=== PATIENT | female | born 1945 | race Caucasian/White ===

== ENCOUNTER → 2017-10-22 | Outpatient (CLI) | payer MEDICARE ==
[~2017-10-22] MED LIST: ALBU2.5V36 INH; AMIL5TAB12 PO; AMLO2.5T75 PO; ASPI-573 PO; ATE50 PO; CEFT1VIA57 IM; CHOL200025 PO; EZET10TA41 PO; FEN145 PO; FLUT16SP19; IOPAMIDOL 76% 75 ML INFUS BTL 75 ML ONE; LACT1CAP6 PO; LIS10 PO; METO50TA19 PO; OXYB10TA PO; PENT100C10 PO; PHENA200 PO; RED600CA15 PO; VITA100014 PO; [UNRECOGNIZED DRUG - CODE] PO
--- NOTE | 2017-10-22 11:47 | RADIOLOGY IMAGING REPORT ---
FACILITY: [facility] [place] PATIENT NAME: Yanna Bryant : 1945 MR: [id number] V: [id number] EXAM DATE: ORDERING PHYSICIAN: ARVIND KISER TECHNOLOGIST: Location: [facility] Patient: Yanna Bryant : 1945 Visit/Account:[id number] Date of Sevice: 10/22/2017 ABDOMEN/PELVIS W/WO CONTRAST History: Pelvic and lower abdominal pain and 72-year-old female. Technique: CT images were obtained through the abdomen and pelvis without the injection of intravenou s contrast. Coronal and sagittal reformations were then created. One of the following dose optimization techniques was utilized in the performance of this exam: Autom ated exposure control; adjustment of the mA and/or kV according to the patient's size; or use of an i terative reconstruction technique. Specific details can be referenced in the facility's radiology C T exam operational policy. Comparison study:None Findings: Lung bases: Negative Hepatobiliary: No liver mass is seen, but the noncontrast study limits evaluation of the liver. The g allbladder so far as visualized is unremarkable and there is no gallstone disease. Spleen: Negative. Adrenals: Negative Pancreas: Negative. Kidneys/genitourinary/retroperitoneum: There is minimal perinephric stranding minimal findings of a m ass, hydronephrosis or a ureteral calculus. No bladder calculi are seen. There is no retroperitonea l lymphadenopathy. Bowel/peritoneum/mesentery: There is diverticulosis of the sigmoid colon but there are no findings of diverticulitis. A normal appendix is not seen. Pelvic/genital urinary: The bladder is unremarkable. Neither the uterus or ovaries are seen. There are multiple phleboliths in the pelvis. Vessels: There is dense vascular calcification of the aorta.. Lymph node: No findings of a kathie mass.. Body wall/bones: There is no finding of an inguinal or periumbilical hernia. 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 IMPRESSION: 1. No findings of pathology to explain this patient's abdominal pain. 2. No findings of hydronephrosis or nephrolithiasis. 3. Diverticulosis without diverticulitis. 4. Prominent vascular calcification of the infrarenal aorta. 5. Postoperative gynecologic changes in the pelvis not otherwise specified. 6. 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 Report Dictated By: Charly Rai MD at 10/22/2017 11:38 AM Report E-Signed By: Charly Rai MD at 10/22/2017 11:43 AM WSN:[email or web address]
== END ==
LOC: CT 01:59
PROVIDERS: ATTEND Urology
DX: N39.0 Urinary tract infection, site not specified (principal); K57.90 Diverticulosis of intestine, part unspecified, without perforation or abscess without bleeding; I70.0 Atherosclerosis of aorta
CPT/HCPCS: 74178; 82565; Q9967; 36415

== ENCOUNTER → 2017-10-22 | Outpatient (REF) | payer MEDICARE ==
[~2017-10-22] MED LIST changes: -IOPAMIDOL 76% 75 ML INFUS BTL 75 ML ONE
== END ==
LOC: ZZSENDIN 10:30
PROVIDERS: ATTEND Urology
DX: N39.0 Urinary tract infection, site not specified (principal); R31.1 Benign essential microscopic hematuria
CPT/HCPCS: 88108

== ENCOUNTER → 2018-10-27 | Outpatient (CLI) | payer MEDICARE ==
[~2018-10-27] MED LIST changes: -CEFT1VIA57 IM; +CEFT1VIA63 IM
--- NOTE | 2018-10-29 13:48 | RADIOLOGY IMAGING REPORT ---
FACILITY: [facility] - [place] PATIENT NAME: LALIT GUSMAN : [id number] MR: [id number] V: [id number] EXAM DATE: [id number] ORDERING PHYSICIAN: MICAELA SANCHEZ TECHNOLOGIST: Debo Sheriff PROCEDURE: BILATERAL DIGITAL SCREENING MAMMOGRAM WITH CAD ASSISTED INTERPRETATION & 3D TOMOSYNTHESIS. REASON FOR STUDY: Screening. FAMILY HISTORY OF BREAST CANCER: BREAST PROCEDURES/TREATMENTS: COMPARISON: 10/05/2015 & 02/16/2014. VIEWS OBTAINED: 2D & 3D full field CC & MLO projections. BREAST DENSITY: Demonstrates scattered fibroglandular tissue elements. MAMMOGRAM FINDINGS: Scattered calcifications which are benign are seen in both breasts, stable. There is no suspicious mass, calcification, or architectural distortion. IMPRESSION: BIRADS 2: Benign finding. DIAGNOSTIC CATEGORY 2--BENIGN FINDING. RECOMMENDATIONS: ROUTINE MAMMOGRAM AND CLINICAL EVALUATION IN 1 YR. Dictated by: Hira Glover M.D. on 10/29/2018 at 10:35 Transcribed by: CLEMENTINA on 10/29/2018 at 10:52 Approved by: Hira Glover M.D. on 10/29/2018 at 13:44 [facility]
== END ==
LOC: MAMO 01:18
PROVIDERS: ATTEND Nurse Practitioner Family
DX: Z12.31 Encounter for screening mammogram for malignant neoplasm of breast (principal)
CPT/HCPCS: 77063; 77067

== ENCOUNTER 2018-11-27 11:27 | Emergency (ER) | payer MEDICARE ==
--- NOTE | 2018-11-27 11:33 | ER Report ---
History and Physical Time Seen By MD: 11:28 HPI/ROS Left breast redness that started 2-3 days ago. No fever chills. No nipple drainage. Normal mammogram one month ago. Placed on Bactrim by her PCM in [place]. Symptoms worsened after 2 doses of antibiotics. No other complaints. Remainder of the 14 system rev: Yes Allergies: Coded Allergies: cephalexin (Verified Allergy, Severe, RASH, 11/27/18) indomethacin (Verified Allergy, Mild, RASH, 11/27/18) Penicillins (Unverified Allergy, Unknown, RASH, 11/27/18) atorvastatin (Unverified Allergy, Unknown, MUSCLE LOSS, 11/27/18) rosuvastatin (Unverified Allergy, Unknown, MUSCLE LOSS, 11/27/18) Uncoded Allergies: TAPE (Allergy, Intermediate, BLISTERS, 08/28/06) KNOWN RX FROM ADHESIVE AND PAPER TAPES PENCILLIN (Allergy, Mild, RASH, 08/28/06) Home Meds Active Scripts Doxycycline Hyclate (DOXYCYCLINE HYCLATE) 100 Mg Tablet.dr, 100 MG PO BID for 10 Days, #20 Prov:DONNIE RAZO MD 11/27/18 Fluticasone Prop 50 Mcg Ns (FLONASE 50 MCG NS) 16 Gm [place].susp, 2 SPRAYS NA QDAY for 30 Days, #1 BOT 6 Refills Prov:SHAUNNA WILLIS JR, MD 08/30/17 Reported Medications Albuterol Sulfate 0.083% (ALBUTEROL SULFATE 0.083%) 2.5 Mg/3 Ml Vial.neb, 1 EA INH PRN, INH 08/16/17 Vitamin E (Dl,Tocopheryl Acet) (VITAMIN E) 1,000 Unit Capsule, 1 CAP PO QDAY, CAPSULE 08/16/17 Cholecalciferol (Vitamin D3) (VITAMIN D3) 2,000 Unit Capsule, 1 CAP PO QDAY, CAPSULE 08/16/17 Red Yeast Rice (RED YEAST RICE) 600 Mg Capsule, 2 CAP PO QDAY, CAPSULE 08/16/17 Lactobacillus Combination No.4 (PROBIOTIC) 1 Each Capsule, 1 CAP PO QDAY, CAPSULE 08/16/17 Amlodipine Besylate (NORVASC) 2.5 Mg Tablet, 1 TAB PO QDAY, TAB 08/16/17 Ezetimibe (ZETIA) 10 Mg Tablet, 1 TAB PO QDAY, TAB 08/16/17 Metoprolol Succinate (METOPROLOL SUCCINATE) 50 Mg Tab.er.24h, 1 TAB PO QDAY, TAB 08/16/17 Aspirin (Low-Dose Aspirin) 81 Mg Tablet, 1 TAB PO DAILY, #1 08/28/06 Amiloride Hcl (Midamor) 5 Mg Tablet, 1 TAB PO DAILY, #1 08/28/06 Smoking Status: Never Smoker Constitutional Vital Sign - Last 24 Hours 11/27/18 11/27/18 11/27/18 11/27/18 11:27 11:31 11:57 12:13 Temp 98.1 Pulse 62 66 52 Resp 20 B/P (MAP) 187/82 159/68 (98) Pulse Ox 88 91 89 O2 Delivery Room Air 11/27/18 11/27/18 11/27/18 11/27/18 12:27 12:30 13:18 13:45 Pulse 47 B/P (MAP) 157/68 (97) 147/77 (100) Pulse Ox 89 O2 Flow Rate 2.0 Physical Exam General Appearance: The patient is alert, has no immediate need for airway protection and no current signs of toxicity. Eyes: Pupils equal and round no injection. Respiratory: Chest is non tender, lungs are clear to auscultation. Cardiac: regular rate and rhythm Skin: Cellulitis of left breast at the nipple region. Also with underlying mass c/w likely abscess. No nipple drainage. DIFFERENTIAL DIAGNOSIS: After history and physical exam differential diagnosis was considered for breast cancer/mass, cellulitis, abscess, MRSA Medical Decision Making Data Points Result Diagram: 11/27/18 1132 11/27/18 1132 Laboratory Hematology Test 11/27/18 11:32 White Blood Count 11.6 k/uL (4.5-11.0) H Red Blood Count 5.55 M/uL (4.17-5.56) Hemoglobin 16.4 g/dL (12.0-16.0) H Hematocrit 34.5 % (34.0-47.0) Mean Corpuscular Volume 87.7 fL (80.0-96.0) Mean Corpuscular Hemoglobin 29.2 pg (26.0-33.0) Mean Corpuscular Hemoglobin Concent 32.3 g/dL (32.0-36.0) Red Cell Distribution Width 14.4 % (11.5-14.5) Platelet Count 213 K/uL (150-450) Mean Platelet Volume 8.1 fL (7.2-11.1) Neutrophils (%) (Auto) 79.1 % (39.4-72.5) H Lymphocytes (%) (Auto) 12.9 % (17.6-49.6) L Monocytes (%) (Auto) 6.6 % (4.1-12.4) Eosinophils (%) (Auto) 0.9 % (0.4-6.7) Basophils (%) (Auto) 0.5 % (0.3-1.4) Nucleated RBC Relative Count (auto) 0.1 /100WBC Neutrophils # (Auto) 9.1 K/uL (2.0-7.4) H Lymphocytes # (Auto) 1.5 K/uL (1.3-3.6) Monocytes # (Auto) 0.8 K/uL (0.3-1.0) Eosinophils # (Auto) 0.1 K/uL (0.0-0.5) Basophils # (Auto) 0.1 K/uL (0.0-0.1) Nucleated RBC Absolute Count (auto) 0.02 K/uL Chemistry Test 11/27/18 11:32 Sodium Level 138 mmol/L (137-145) Potassium Level 4.0 mmol/L (3.5-5.0) Chloride Level 102 mmol/L (98-107) Carbon Dioxide Level 28 mmol/L (22-31) Blood Urea Nitrogen 9 mg/dl (7-18) Creatinine 0.70 mg/dl (0.52-1.04) Glomerular Filtration Rate Calc > 60.0 Random Glucose 127 mg/dl (75-110) Lactate 1.4 mmol/L (0.7-2.1) Calcium Level 9.7 mg/dl (8.4-10.2) Total Bilirubin 1.1 mg/dl (0.2-1.3) Aspartate Amino Transf (AST/SGOT) 28 U/L (0-35) Alanine Aminotransferase (ALT/SGPT) 43 U/L (0-56) Alkaline Phosphatase 92 U/L (0-126) Total Protein 8.1 g/dl (6.3-8.2) Albumin 4.4 g/dl (3.5-5.0) ED Course/Re-evaluation ED Course Left breast cellulitis that started approximately 3 days ago. Took 1 day, 2 dos es, of double strength Bactrim and symptoms today worsens. Had normal mammogram approximately one month ago. No nipple discharge. Also with small abscess that was drained with needle aspiration by radiology department. Patient was given 1 dose of vancomycin, and now states she feels improved. I am going to discharge her with doxycycline, and I told her to stop taking the Bactrim. She is allergic to Keflex. She is going to monitor the spread of cellulitis and also monitor herself for fever. She has any questions she will call the emergency department tomorrow. If she develops a fever greater than 100.4 with a cellulitis worsens she will return to the emergency department. Decision to Disposition Date: Nov 27, 2018 Decision to Disposition Time: 15:35 Depart Departure Latest Vital Signs Vital Signs Date Time Temp Pulse Resp B/P (MAP) Pulse Ox O2 Delivery O2 Flow Rate FiO2 11/27/18 13:45 2.0 11/27/18 13:18 147/77 (100) 11/27/18 12:27 47 89 11/27/18 11:31 98.1 20 Room Air Impression: Primary Impression: Cellulitis of right breast Additional Impression: Abscess of breast Condition: Improved Disposition: HOME OR SELF-CARE Referrals: IMELDA RUCKER PAC (PCP) New Scripts Doxycycline Hyclate (DOXYCYCLINE HYCLATE) 100 Mg Tablet. 100 MG PO BID for 10 Days, #20 Prov: DONNIE RAZO MD 11/27/18 Patient Instructions: Cellulitis (ED) Problem Qualifiers DONNIE RAZO MD Nov 27, 2018 11:32
[2018-11-27] MEDS ORDERED: NS(*) 0.9% 1000 ML BAG 1,000 ML IV ONE (11:55)
[2018-11-27] MEDS ORDERED: VANCOMYCIN(*) 1 GM VIAL 1 GM in NS(*) 0.9% 250 ML BAG 250 ML IVPB ONE (11:55)
[2018-11-27] MEDS ORDERED: MORPHINE 2 MG/ML SYR IVP ONE ×2 (12:00→14:50)
[2018-11-27 12:02] LABS: PLATELET COUNT, AUTOMATED 213 K/uL (150-450)
[2018-11-27] MEDS ORDERED: diphenhydrAMINE 50 MG/ML VIAL IVP ONE (13:15)
[2018-11-27 15:30] VITALS: BP 152/64
[2018-11-27] MEDS ORDERED: ACETAMINOPHEN 500 MG TAB PO ONE (15:45)
[2018-11-27] MEDS ORDERED: DOXY-228 PO (15:45)
[2018-11-27] MEDS ORDERED: DOXYCYCLINE HYCL 100 MG TAB PO ONE (15:45)
--- NOTE | 2018-11-27 15:59 | RADIOLOGY IMAGING REPORT ---
FACILITY: [facility] PATIENT NAME: LALIT GUSMAN : [id number] MR: [id number] V: [id number] EXAM DATE: [id number] ORDERING PHYSICIAN: DONNIE RAZO TECHNOLOGIST: Slime Lr RT(R)(CT) PROCEDURE:US LEFT BREAST COMPARISON:3D mammograms 09/04/15 INDICATIONS:cellulitis/abscess??? FINDINGS: Scanning of the retroareolar area of the breast was done. The skin is red. In the 2 o'clock position in the retroareolar area there is a fairly rounded 1.2 x 1.1 x 1.0cm cystic structure which has internal material. There is some flow around the wall of this although it does not clearly have a hypervascular capsule. There is some additional duct ectasia. A smaller anechoic 9mm cyst is demonstrated in the medial retroareolar aspect. No other concerning focal collection. DIAGNOSTIC CATEGORY 2--BENIGN FINDING. RECOMMENDATIONS: ROUTINE MAMMOGRAM AND CLINICAL EVALUATION. ULTRASOUND-GUIDED CYST ASPIRATION: LEFT BREAST. IMPRESSION: BIRADS 2: Benign finding. After discussing findings with the ER provider, Ultrasound guided abscess drainage was requested & that is ordered separately. Dictated by: Hira Boston on 11/27/2018 at 15:17 Transcribed by: MICHI on 11/27/2018 at 15:42 Approved by: Hira Boston on 11/27/2018 at 15:53 [facility]
--- NOTE | 2018-11-27 18:14 | RADIOLOGY IMAGING REPORT ---
FACILITY: [facility] [place]IENT NAME: LALIT GUSMAN : [id number] MR: [id number] V: [id number] EXAM DATE: ORDERING PHYSICIAN: DONNIE RAZO TECHNOLOGIST: Manasa Leger RDMS(ABD,OBGYN,BR),RVT PROCEDURE: CYST ASPIRATION LEFT BREAST ULTRAOUND GUIDED COMPARISON: Ultrasound today INDICATIONS: cellulitis with abscess/small Left breast abscess FINDINGS: Ultrasound guided aspiration of the just over 1cm presumed abscess in the lateral retroaroareolar aspect of the Left breast was discussed with the patient & an informed consent was obtained. The breast was prepped with Chloraprep & sterile towels were placed. I approached the collection from the inferior aspect. Lidocaine was utilized from the skin down to the margins of the collection under Ultrasound. Using Ultrasound visualization a 20 Gauge needle was advanced into the cystic collection attached to a syringe. It aspirated completely without a residual solid component yielding about 1cc of greenish and faintly cloudly fluid which was sent for culture & laboratory evaluation afterward. No immediate complications were noted. DIAGNOSTIC CATEGORY 2--BENIGN FINDING. RECOMMENDATIONS: ROUTINE MAMMOGRAM AND CLINICAL EVALUATION. CLINICAL EVALUATION. CONCLUSION: BIRADS 2: Benign finding. Small Left breast abscess which was drained percutaneously. Recommend clinical follow up for patient's cellulitis. Dictated by: Hira Boston on 11/27/2018 at 15:56 Transcribed by: MICHI on 11/27/2018 at 16:40 Approved by: Hira Boston on 11/27/2018 at 18:09 [facility]
== END 2018-11-27 16:05 | disposition home or self-care (01) ==
LOC: ER 11:40
DX: N61.1 Abscess of the breast and nipple (principal)
CPT/HCPCS: 36415; 76642; 76942; 83605; 85025; 87040; 87071; 87073; 87205; 96374; 96375; 96376; 99284; A9270; J1200; J2270; J3370; J7030; J7050; 82040; 82247; 82310; 82374; 82435; 82565; 82947; 84075; 84132; 84155; 84295; 84450; 84460; 84520